=== PATIENT | male | born 1950 | race Caucasian/White ===

== ENCOUNTER 2020-09-12 13:57 | Emergency (ER) | payer MEDICARE ==
[~2020-09-12 13:57] MED LIST: IMODIUM2 MG PO; ONDANSETRON ODT4 MG PO/SL
[2020-09-12 14:41] LABS: BASOPHIL 0.5 % (0-2); HCT 35.9 % (42.0-52.0); HGB 12.1 g/dl (13.2-18.0); LYMPHOCYTE 22.5 % (15-48); MCH 30.9 pg (25.0-31.0); MCHC 33.7 g/dL (32.0-36.0); MCV 91.8 fL (78.0-100.0); MONOCYTE 15.1 % (0-12); MPV 11.3 fL (6.0-9.5); NEUTROPHIL 55.3 % (41-80); NRBC 0; PLT 240 K/uL (150-400); RBC 3.91 M/uL (4.70-6.00); WBC 8.7 K/uL (4.0-10.5)
[2020-09-12 14:51] LABS: INR 1.11 (0.9-1.2); PROTHROMBIN TIME 13.6 SECONDS (11.4-13.6); PTT 29.1 SECONDS (22.2-34.7)
[2020-09-12 15:08] LABS: ALBUMIN 3.2 g/dL (3.4-5.0); BILIRUBIN - TOTAL 1.3 mg/dL (0.2-1.0); BUN/CREAT RATIO (CALC) 24.2 RATIO; CREATININE 0.95 mg/dL (0.67-1.17); FT4 (FREE T4) 1.5 ng/dL (0.76-1.46); GLOBULIN (CALCULATION) 3.4 g/dL; POTASSIUM 3.8 mmol/L (3.5-5.1); TOTAL PROTEIN 6.6 g/dL (6.4-8.2)
== END 2020-09-12 16:23 | disposition home or self-care (01) ==
LOC: FER 13:57
PROVIDERS: Emergency Medicine
DX: I48.92 Unspecified atrial flutter (principal); I10 Essential (primary) hypertension; F17.290 Nicotine dependence, other tobacco product, uncomplicated; Z79.82 Long term (current) use of aspirin; Z79.899 Other long term (current) drug therapy; Z79.891 Long term (current) use of opiate analgesic
CPT/HCPCS: 36415; 71045; 80053; 83735; 83880; 84439; 84443; 84484; 85025; 85610; 85730; 93005; J7030